=== PATIENT | female | born 1980 | race Caucasian/White ===

== ENCOUNTER 2023-08-09 10:27 | Day surgery (SDC) | payer BC ==
[2023-08-09] MEDS ORDERED: Decadron 4 MG INJ IV ONE (10:28)
[2023-08-09] MEDS ORDERED: Sodium Chloride 0.9(Preservative Free) 10 ML IJ ONE (10:28)
[2023-08-09] MEDS ORDERED: DIPRIVAN 200 MG/20 ML IV ONE (11:55)
[2023-08-09] MEDS ORDERED: Lactated Ringers 1,000 ML IV ONE (12:02)
[2023-08-09] MEDS ORDERED: Zofran 4 MG/2 ML VIAL ONE (12:06)
--- NOTE | 2023-08-09 13:29 | XRAY ---
Indication: Right L3-L4 and L5-S1 transforaminal TIMO. Intraoperative fluoroscopy provided for 50 seconds. 3 digital spot image submitted for interpretation demonstrates posterior needle tips projecting over the expected right L3 and L5 nerve roots. Small amount of contrast injected for needle tip placement. Correlate with intraoperative findings/report. Incidental L5-S1 fusion hardware.
--- NOTE | 2023-08-09 15:00 | XRAY ---
50 seconds of fluoroscopy was used in surgery for a right L3-L4 and L5-S1 transforaminal TIMO.
== END 2023-08-09 12:30 | disposition home or self-care (01) ==
LOC: SDC-PAIN 10:27
PROVIDERS: ATTEND Psychiatry & Neurology Pain Medicine
DX: M54.16 Radiculopathy, lumbar region (principal)
CPT/HCPCS: 64483; 64484; 72100; 77003; J1100; J2405; J2704; Q9966